=== PATIENT | male | born 1995 | race Caucasian/White ===

== ENCOUNTER 2016-11-14 13:17 | Emergency (ER) | payer OTHER, SELFPAY ==
[2016-11-14 13:30] VITALS: RESP 18; TEMP 99.5
--- NOTE | 2016-11-14 14:26 | C.PDOC ---
History Of Present Illness 21 yr old male presents to the ER with complaints of painful lesions to the base of his penis for the past 2 days. Patient reports his sexual partner (also a patient in ER) has similar symptoms. Patient also pointed out a red, itchy area on the scrotum for the past few months but states it comes and goes. Patient denies fever, chest pain, SOB, nausea, vomiting, abdominal pain, diarrhea, dysuria, incontinence, weakness or numbness. Time Seen by Provider: 11/14/16 13:38 Chief Complaint (Nursing): Male Genitourinary History Per: Patient History/Exam Limitations: no limitations Onset/Duration Of Symptoms: Days (2) Past Medical History Reviewed: Historical Data, Nursing Documentation, Vital Signs Vital Signs: Last Vital Signs Temp 99.5 F 11/14/16 13:29 Pulse 86 11/14/16 14:49 Resp 18 11/14/16 14:49 BP 118/68 11/14/16 14:49 Pulse Ox 99 11/14/16 17:23 - Medical History PMH: No Chronic Diseases Family History: States: No Known Family Hx - Social History Hx Alcohol Use: Yes Hx Substance Use: No Review Of Systems Except As Marked, All Systems Reviewed And Found Negative. Constitutional: Negative for: Fever Cardiovascular: Negative for: Chest Pain Respiratory: Negative for: Shortness of Breath Gastrointestinal: Negative for: Nausea, Vomiting, Abdominal Pain, Diarrhea Genitourinary: Positive for: Other (Lesions to the base of penis. ). Negative for: Dysuria, Incontinence Neurological: Negative for: Weakness, Numbness Physical Exam - Physical Exam Appears: Well, Non-toxic, No Acute Distress Skin: Warm, Dry, No Rash Male Genital: Circumcised, Other (At the base of penis, 2 <1mm lesion, appears to be wart like. 1cm area of slight redness to the right scrotum. ) Extremity: Normal ROM Neurological/Psych: Oriented x3, Normal Speech, Normal Motor ED Course And Treatment O2 Sat by Pulse Oximetry: 99 Medical Decision Making Medical Decision Making: Lesion appears to be an ganga wart Pt advised local tx and f/u at [facility] for further evaluation Disposition Counseled Patient/Family Regarding: Diagnosis, Need For Followup - Disposition Referrals: [facility] [Outside] Disposition: HOME/ ROUTINE Disposition Time: 14:31 Condition: GOOD Prescriptions: Salicylic Acid [Duofilm] 0.1 ml TP DAILY #10 ml Triamcinolone 0.1% [Triamcinolone 0.1% Cream] 0.1 mg TP BID #30 g Instructions: Common Wart (ED) Forms: Work Excuse Print Language: CITIZEN OF [place] - Clinical Impression Clinical Impression: Wart - Scribe Statement The provider has reviewed the documentation as recorded by the Ty Oconnell Provider Attestation: All medical record entries made by the Ty were at my direction and personally dictated by me. I have reviewed the chart and agree that the record accurately reflects my personal performance of the history, physical exam, medical decision making, and the department course for this patient. I have also personally directed, reviewed, and agree with the discharge instructions and disposition.
[2016-11-14 14:49] VITALS: BP 118/68; PULSE 86
[2016-11-14 17:21] VITALS: O2SAT 99
== END 2016-11-14 14:50 | disposition home or self-care (01) ==
LOC: C.ER 13:17
DX: B07.9 Viral wart, unspecified (principal)

== ENCOUNTER 2018-03-27 12:42 | Emergency (ER) | payer OTHER ==
[2018-03-27 13:45] LABS: BASO # 0.1 K/uL (0.0-0.2); BASO % 0.8 % (0.0-2.0); EOS # 0.4 K/uL (0.0-0.7); EOS % 3.4 % (0.0-4.0); LYMPH # 2.6 K/uL (1.0-4.3); LYMPH % 23.7 % (20.0-40.0); MEAN CELL VOLUME 86.1 fL (80.0-94.0); MEAN CORPUSCULAR HEMOGLOBIN 29.2 pg (27.0-31.0); MEAN CORPUSCULAR HGB CONC 33.9 g/dL (33.0-37.0); MEAN PLATELET VOLUME 8.2 fL (7.2-11.7); MONO # 0.9 K/uL (0.0-0.8); NEUT # 6.9 K/uL (1.8-7.0); NEUT % 64.1 % (50.0-75.0); NRBC % 0.1 % (0.0-2.0); RBC 4.44 Mil/uL (4.40-5.90); RED CELL DISTRIBUTION WIDTH 14.7 % (11.5-14.5); WHITE BLOOD COUNT 10.8 K/uL (4.8-10.8)
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
[2018-03-27 13:57] LABS: ALB/GLOB RATIO 1.2 (1.0-2.1); ALBUMIN 4.4 g/dL (3.5-5.0); ALT/SGPT 72 U/L (21-72); AST/SGOT 40 U/L (17-59); BLOOD UREA NITROGEN 12 mg/dL (9-20); CALCIUM 9.5 mg/dl (8.6-10.4); GFR NON-AFRICAN AMERICAN > 60
[2018-03-27 15:09] VITALS: RESP 16
--- NOTE | 2018-03-27 17:09 | CT ---
Date of service: 03/27/2018 PROCEDURE: CT of the Left Hip. HISTORY: Status post pelvic fracture with persistent fluid seen. COMPARISON: None available. TECHNIQUE: Contiguous axial images of the left hip were obtained. Coronal and sagittal reformats were generated. This CT exam was performed using one or more of the following dose reduction techniques: Automated exposure control, adjustment of the mA and/or kV according to patient size, and/or use of iterative reconstruction technique. Radiation dose: Total DLP = 1307.42 FINDINGS: BONES: Healing fractures of the right inferior pubic ramus as well as the right anterolateral superior pubic ramus adjacent to the anterolateral border of the acetabulum. There is also a compression screw extending medially and into the left iliac bone and sacrum presumably reducing a SI joint subluxation and/or dislocation. Tiny bone islands are present within both femoral heads. LEFT HIP JOINT: Both femoral heads are appropriately located within the respective acetabula. No significant degenerative osteoarthritis. SOFT TISSUES: There is a large (approximately 34 cm x 9.4 cm x 4.6 cm) elliptical shaped fluid collection with air-fluid level that appears to be located in the left vastus lateralis . The density of the fluid ranges between mid single and lower teens suggesting that the. There is also some mild infiltration changes seen in the adjacent overlying lateral upper subcutaneous tissues along the superior margin of the collection.. Rule out infection with gas-forming organism. IMPRESSION: Large (approximately 34 cm x 9.4 cm x 4.6 cm) elliptical shaped fluid collection containing a component of air (air-fluid level). This collection is located in the left vastus lateralis . The density of the fluid ranges between mid single and lower teens suggesting . There is also some mild infiltration changes seen in the adjacent overlying lateral upper subcutaneous tissues along the superior margin of the collection.. Rule out infection with gas-forming organism. Healing fractures of the right inferior pubic ramus as well as the right anterolateral superior pubic ramus adjacent to the anterolateral border of the acetabulum. There is also a compression screw extending medially and into the left iliac bone and sacrum presumably reducing a SI joint subluxation and/or dislocation
[2018-03-27 17:11] VITALS: BP 121/75; PULSE 102; TEMP 98.9
[2018-03-27 17:24] VITALS: O2SAT 99
--- NOTE | 2018-03-30 14:58 | CARD ---
APPROVED REPORT Date of service: 03/27/2018 EKG Measurement Heart [id number] <Conclusion> Normal sinus rhythm with sinus arrhythmia Voltage criteria for left ventricular hypertrophy Abnormal ECG
== END 2018-03-27 17:39 | disposition home or self-care (01) ==
LOC: C.ER 12:42
DX: L76.34 Postprocedural seroma of skin and subcutaneous tissue following other procedure (principal); Y84.8 Other medical procedures as the cause of abnormal reaction of the patient, or of later complication, without mention of misadventure at the time of the procedure